=== PATIENT | female | born 1965 ===

== ENCOUNTER 2017-04-19 08:05 | Emergency (ER) | payer MEDICARE ==
[2017-04-19 08:06] VITALS: BMI 28.0
--- NOTE | 2017-04-19 08:31 | C.PDOC ---
History Of Present Illness 51 y/o female presents to the ED with complains of suprapubic tube displacement which onset this morning. Pt states tube replaced [address] Ruchi Chua. Pt noticed leaking from tube site vs cracked tube, then tube came out. Tube reinserted COLLECTION TEAM LEAD by family. Pt now complains of suprapubic fullness, no bag drainage since reinsertion. No fever, chills. SUPRAPUBIC TUBE DISPLACEMENT ONSET THIS MORNING. PS TUBE REPLACED [address] Ruchi CASANOVA. NOTICED LEAKING FROM TUBE SITE VS CRACKED TUBE, THEN TUBE CAME OUT. REINSERTED COLLECTION TEAM LEAD BY FAMILY. CO SUPRAPUBIC FULLNESS. NO BAG DRAINAGE SINCE REINSERTION EXAM NAD NONTOXIC PT HOLDING SUPRAPUBIC TUBE, PLACED IN OS. SKIN NO INFXNKRIS SWELL. Time Seen by Provider: 04/19/17 08:14 Chief Complaint (Nursing): Female Genitourinary History Per: Patient History/Exam Limitations: no limitations Onset/Duration Of Symptoms: Hrs Current Symptoms Are (Timing): Better Severity: Mild Quality Of Discomfort: Other (fullness) Associated Symptoms: denies: Fever, Chills Recent travel outside of the [place]: No Past Medical History Reviewed: Historical Data, Nursing Documentation, Vital Signs Vital Signs: Last Vital Signs Temp 98.6 F 04/19/17 12:34 Pulse 86 04/19/17 12:34 Resp 18 04/19/17 12:34 BP 112/80 04/19/17 12:34 Pulse Ox 97 04/19/17 12:34 - Medical History PMH: Asthma (ALLERGIC ASTHMA), Colonic Polyps (12/22/16), Gastritis (FROM MEDS), Multiple Sclerosis, Peripheral Edema, Seizures (DURING SLEEP) Surgical History: Endoscopy - [facility] Procedures DRAINAGE OF BLADDER WITH DRAINAGE DEVICE, PERC APPROACH (01/08/17) Family History: States: Unknown Family Hx - Social History Hx Alcohol Use: No Hx Substance Use: No - Immunization History Hx Influenza Vaccination: Yes (2015) Hx Pneumococcal Vaccination: Yes (2015) Review Of Systems Except As Marked, All Systems Reviewed And Found Negative. Constitutional: Negative for: Fever, Chills Gastrointestinal: Positive for: Other (suprapubic fullness) Physical Exam - Physical Exam Appears: Non-toxic Skin: Warm, Dry, No Rash, Other (No signs of infection, no discharge or swelling ) Chest: Symmetrical Cardiovascular: Rhythm Regular, No Murmur Respiratory: Normal Breath Sounds, No Rales, No Rhonchi, No Wheezing Gastrointestinal/Abdominal: Other (Pt holding suprapubic tube, placed in OS) Extremity: Normal ROM Neurological/Psych: Oriented x3, Normal Speech ED Course And Treatment O2 Sat by Pulse Oximetry: 98 (room air) Pulse Ox Interpretation: Normal Progress - Re-Evaluation Re-evaluation Note: 04/19/17 08:00 D/W DR Ruchi CASANOVA, MINISTERIO KEITH PT IN ER 04/19/17 08:39 PT REQUESTING STRAIGHT CATH DUE TO BLADDER FULLNESS, DISCOMFORT. 04/19/17 08:46 S/P STRAIGHT CATH 150 CC 04/19/17 12:00 sp catheter change by dr ruchi casanova in er. pt cleared for home dc. - Data Reviewed Data Reviewed: Old records - Continuity of Care Discussed patient case with:: Patient, Family-HIPPA compliant Discussed pt. case with real estate consultant/specialty: Urology Medical Decision Making Medical Decision Making: Plan: * Dialudid * urinalysis Disposition Counseled Patient/Family Regarding: Diagnosis, Need For Followup - Disposition Disposition: HOME/ ROUTINE Disposition Time: 12:30 Condition: IMPROVED Instructions: How to Care for Your Suprapubic Catheter (ED) - Clinical Impression Clinical Impression: Suprapubic catheter dysfunction - Scribe Statement The provider has reviewed the documentation as recorded by the Aaron Jones Provider Attestation: All medical record entries made by the Camronibe were at my direction and personally dictated by me. I have reviewed the chart and agree that the record accurately reflects my personal performance of the history, physical exam, medical decision making, and the department course for this patient. I have also personally directed, reviewed, and agree with the discharge instructions and disposition.
[2017-04-19 09:06] LABS: RBC URINE 22 /hpf (0-3); URINE BACTERIA RARE (<OCC); URINE BILIRUBIN NEGATIVE (NEGATIVE); URINE BLOOD 3+ (NEGATIVE); URINE COLOR Straw (YELLOW); URINE GLUCOSE (UA) NORMAL (Normal); URINE KETONE NEGATIVE (NEGATIVE); URINE LEUKOCYTE ESTERASE 3+ Leu/uL (Negative); URINE PROTEIN NEGATIVE (NEGATIVE); URINE UROBILINOGEN NORMAL mg/dL (0.2-1.0); WBC URINE 26 /hpf (0-5)
[2017-04-19 12:37] VITALS: BP 112/80; PULSE 86; RESP 18; TEMP 98.6
[2017-04-20 09:15] VITALS: O2SAT 98
--- NOTE | 2017-05-10 11:44 | CON ---
DATE: 04/19/2017 REASON FOR CONSULTATION: Failed [place] catheter. The patient is a very pleasant lady with apparent multiple medical issues. She may even have colon c ancer. She is seen by different gastroenterologists. I do not have any pathologic documentation. She has urinary retention that I do not have documentati on for. We discussed the options and right now she lives with a suprapubic catheter. I should mention that she reports a LATEX ALLERGY, but when I first met her, she had seemingly regula r catheter. I since then have put in some silicone catheters. In the interim in between, sometimes, she has some regular catheters inserted with no difficulties, b ut she reports a LATEX ALLERGY. Either way, she recalled me this morning and I am not in the office, but I met her here in the [facility] Room, where the catheter was not working properly. See below. Now, we have changed and put a new one in and she will be discharged home. PAST MEDICAL AND SURGICAL HISTORY: As mentioned above, multiple issues and mostly as recorded by the ER doctors. I am in agreement. MEDICATIONS: See chart. SOCIAL HISTORY: She is . In fact, her and the patient both thanked me. Instead of nicole schulte where she was living with recurrent infections and living with the catheter and living with all different kinds of problems and also that was affecting their intimacy time, so since she has had a suprapubic, she is back to her what she calls normal and feels much better and happier. PHYSICAL EXAMINATION GENERAL: Well-nourished female in no apparent distress. VITAL SIGNS: Within normal limits, included in the chart. LUNGS: Clear. ABDOMEN: Overall soft, nontender. No flank mass appreciated. Cystostomy tube looks to be in the proper location, but does not look to be draining well. What is of note is really and I do not think I have seen this before, there is leaking from the side where the balloon is, meaning the valve is defective. I should mention that the patient called me this morning and I met her here in the ER as quickly as allyssa garsia. Upon her presentation to the ER, the suprapubic catheter had fallen out. The ER doctor was not comfortable with the reinsertion process, but we were. See the procedure liste d below as a separately dictated note. We were able to get a catheter back in. DIAGNOSES: Urinary retention, voiding dysfunction and a dislodged suprapubic catheter. PLAN: As follows: See the separately dictated procedure note and the separate report, basically an operative report at the bedside. I was able to get a new catheter and irrigated it nicely. We only get a 12 or 14-Palestinian. The patient was already getting larger sizes, but now we are just happy to ge t one back in without having to do another procedure. So basically, this is a catheter that got defective. It could have been defective all along. It see ms like it started leaking at the valve and may be a pin or something went into it because you can ba rely see a hole. She called me this morning. She was having catheter difficulty. By the time she g ot to the ER, it was out. It was not in place at all and the ER cannot get one back in, but when I t ook the catheter and looked at it, I tried to fill up the balloon and then water leak through the fam e. So either some kind of defect to the catheter that was not noticed before now or perhaps the patient had a pin stick into it. I asked the patient later. She said maybe she leaned on something, maybe t his and that. There were a lot of possibilities very pleasant and sort of agreeable to options, so I cannot really be sure. Either way, now she has the resting catheter back in: Plan is to discharge the patient home and then have her come to the office and change the catheter on a regular basis. I have also cautioned her against playing with the valve, etc. Donavon Thomas MD cc: [id number] TT: 05/10/2017 11:43:52 Confirmation # [id number] Dictation # [id number] tn
--- NOTE | 2017-05-10 12:05 | OP ---
PROCEDURE DATE: 04/19/2017 This is a bedside procedure. PREOPERATIVE DIAGNOSES: Catheter failure, catheter dislodgement, nonfunctioning catheter. POSTOPERATIVE DIAGNOSES: Catheter failure, catheter dislodgement, nonfunctioning catheter. PROCEDURE: Insertion of a new cystostomy tube, not just a simple exchange. There were no complications. INDICATIONS: See the history and physical and the ER notes and the consultation from me previously d ictated. A very pleasant lady who I know quite well who presented now. She called me this morning that the ca theter was not working well and so I sent her to the Emergency Room. Upon presentation to the Emerge ncy Room, the patient has a cystostomy tube that is not draining well. Upon presentation to the Emergency Room, the catheter was actually not in place. The Emergency Room doctor spoke to me directly, but was not able to get a catheter back in. I was not able to initially get catheter back in. I tried 15 and 14 Frenches and then I had the c art available. I was able to get a little thing and dilate it up and then able to get a little filif orm in. Then once I felt comfortable that was in properly, without dilating, I was not dilating blin dly, but once I felt that this had gone in, I then was able to get a 12-Omani and the urine came magdalena ring out. I should mention that the patient is on blood thinner as well and this concerned me. We were able to get a catheter in well and it is draining well. There was no blood loss. There were no complications. I just want to also mention that further inspection of the balloon that came out, there is leak at th e side of the catheter. When I inject fluid into the valve downstream from there, there is a leak. Unclear exactly the timing for this. It certainly could not be from the origins of insertion. Whether this is some kind of faulty catheter or whether the patient had stuck a pin in or some kind o f thing is not clear. Certainly when I asked the patient, it does not seem like she is very clear ex actly how and when it stopped working properly. Either way, that is the procedure that was done and there were no complications. Donavon L William MD cc: [id number] TT: 05/10/2017 12:05:07 tn
== END 2017-04-19 12:38 | disposition home or self-care (01) ==
LOC: C.ER 08:05
DX: T83.010A Breakdown (mechanical) of cystostomy catheter, initial encounter (principal); Y84.8 Other medical procedures as the cause of abnormal reaction of the patient, or of later complication, without mention of misadventure at the time of the procedure; R33.9 Retention of urine, unspecified

== ENCOUNTER 2019-04-01 10:09 | Emergency (ER) | payer MEDICARE ==
[2019-04-01 10:09] VITALS: BMI 28.0
[2019-04-01] MEDS ORDERED: Sodium Chloride 0.9% 1,000 ML IV ONE (11:51)
[2019-04-01 12:34] LABS: BASO % 0.6 % (0.0-2.0); EOS # 0.4 K/uL (0.0-0.7); EOS % 4.6 % (0.0-4.0); LYMPH # 1.9 K/uL (1.0-4.3); LYMPH % 24.9 % (20.0-40.0); MEAN CORPUSCULAR HEMOGLOBIN 30.1 pg (27.0-31.0); MEAN CORPUSCULAR HGB CONC 34.2 g/dL (33.0-37.0); MEAN PLATELET VOLUME 7.9 fL (7.2-11.7); MONO # 0.4 K/uL (0.0-0.8); MONO % 5.6 % (0.0-10.0); NEUT % 64.3 % (50.0-75.0); RBC 4.73 Mil/uL (3.80-5.20); RED CELL DISTRIBUTION WIDTH 13.8 % (11.5-14.5); WHITE BLOOD COUNT 7.8 K/uL (4.8-10.8)
[2019-04-01 12:37] LABS: HEMOGLOBIN 14.3 g/dL (11.0-16.0); MEAN CELL VOLUME 88.3 fL (81.0-99.0)
[2019-04-01 12:50] LABS: ALB/GLOB RATIO 1.2 (1.0-2.1); ALBUMIN 4.7 g/dL (3.5-5.0); ALT/SGPT 35 U/L (9-52); AST/SGOT 31 U/L (14-36); BLOOD UREA NITROGEN 13 mg/dL (7-17); CALCIUM 10.2 mg/dl (8.6-10.4); GFR NON-AFRICAN AMERICAN > 60
[2019-04-01 12:56] LABS: SQUAMOUS EPITHIAL 5 /hpf (0-5); URINE BACTERIA OCC (<OCC); URINE BILIRUBIN NEGATIVE (NEGATIVE); URINE BLOOD NEGATIVE (NEGATIVE); URINE CLARITY Hazy (Clear); URINE COLOR Yellow (YELLOW); URINE GLUCOSE (UA) NORMAL (Normal); URINE LEUKOCYTE ESTERASE NEG Leu/uL (Negative); URINE PROTEIN NEGATIVE (NEGATIVE); URINE UROBILINOGEN NORMAL mg/dL (0.2-1.0)
[2019-04-01 14:10] VITALS: RESP 20; O2SAT 97
--- NOTE | 2019-04-01 14:17 | C.PDOC ---
History Of Present Illness 53-year-old female, whose PMHx includes multiple sclerosis and kidney stones, presents to the ED for evaluation of right leg pain which began a couple weeks ago. Patient states she was taking Flomax and just recently finished the ant ibiotics. Patient presents to the ED for evaluation because she still has pain. She also reports an episode of vomiting. She denies fever, chills. Time Seen by Provider: 04/01/19 11:46 Chief Complaint (Nursing): Back Pain History Per: Patient History/Exam Limitations: no limitations Onset/Duration Of Symptoms: Other (two weeks ) Current Symptoms Are (Timing): Still Present Quality Of Discomfort: "Pain" Additional History Per: Patient Past Medical History Reviewed: Historical Data, Nursing Documentation, Vital Signs Vital Signs: Last Vital Signs Temp 98.1 F 04/01/19 14:09 Pulse 112 H 04/01/19 14:09 Resp 20 04/01/19 14:09 BP 110/73 04/01/19 14:09 Pulse Ox 97 04/01/19 14:09 Primary Care Provider: Shazia Guan - Medical History PMH: Asthma (ALLERGIC ASTHMA), Colonic Polyps (12/22/16), Gastritis (FROM MEDS), Multiple Sclerosis, Peripheral Edema, Seizures (DURING SLEEP) Denies: Chronic Kidney Disease Surgical History: Endoscopy - [facility] Procedures DRAINAGE OF BLADDER WITH DRAINAGE DEVICE, PERC APPROACH (01/08/17) Family History: States: Unknown Family Hx - Social History Hx Alcohol Use: No Hx Substance Use: No - Immunization History Hx Influenza Vaccination: Yes (2017) Hx Pneumococcal Vaccination: No (2015) Review Of Systems Constitutional: Negative for: Fever, Chills Gastrointestinal: Positive for: Vomiting Musculoskeletal: Positive for: Leg Pain (right ) Physical Exam - Physical Exam Appears: Non-toxic, No Acute Distress Skin: Normal Color, Warm, Dry Head: Atraumatic, Normacephalic Eye(s): bilateral: Other (visually impaired ) Oral Mucosa: Moist Neck: Supple Chest: Symmetrical, No Deformity, No Tenderness Cardiovascular: Rhythm Regular, No Murmur Respiratory: Normal Breath Sounds, No Rales, No Rhonchi, No Wheezing Gastrointestinal/Abdominal: Soft, No Tenderness, No Guarding, No Rebound Back: CVA Tenderness (right-sided), No Vertebral Tenderness, No Paraspinal T enderness Extremity: Normal ROM, Capillary Refill (less than 2 seconds ) Neurological/Psych: Oriented x3, Normal Speech, Normal Cognition ED Course And Treatment - Laboratory Results Result Diagrams: 04/01/19 12:31 04/01/19 12:31 Lab Results: Total Bilirubin 0.3 mg/dL (0.2-1.3) 04/01/19 12:31 AST 31 U/L (14-36) 04/01/19 12:31 ALT 35 U/L (9-52) 04/01/19 12:31 Alkaline Phosphatase 107 U/L (38-126) 04/01/19 12:31 Total Protein 8.6 g/dL (6.3-8.3) H 04/01/19 12:31 Albumin 4.7 g/dL (3.5-5.0) 04/01/19 12:31 Globulin 3.9 gm/dL (2.2-3.9) 04/01/19 12:31 Albumin/Globulin Ratio 1.2 (1.0-2.1) 04/01/19 12:31 Urine Color Yellow (YELLOW) 04/01/19 12:45 Urine Clarity Hazy (Clear) 04/01/19 12:45 Urine pH 5.0 (5.0-8.0) 04/01/19 12:45 Ur Specific [place] 1.008 (1.003-1.030) 04/01/19 12:45 Urine Protein Negative mg/dL (NEGATIVE) 04/01/19 12:45 Urine Glucose (UA) Normal mg/dL (Normal) 04/01/19 12:45 Urine Ketones Negative mg/dL (NEGATIVE) 04/01/19 12:45 Urine Blood Negative (NEGATIVE) 04/01/19 12:45 Urine Nitrate Negative (NEGATIVE) 04/01/19 12:45 Urine Bilirubin Negative (NEGATIVE) 04/01/19 12:45 Urine Urobilinogen Normal mg/dL (0.2-1.0) 04/01/19 12:45 Ur Leukocyte Esterase Neg Jayne/uL (Negative) 04/01/19 12:45 Urine WBC (Auto) 1 /hpf (0-5) 04/01/19 12:45 Urine RBC (Auto) < 1 /hpf (0-3) 04/01/19 12:45 Ur Squamous Epith Cells 5 /hpf (0-5) 04/01/19 12:45 Urine Bacteria Occ (<OCC) H 04/01/19 12:45 O2 Sat by Pulse Oximetry: 97 (on RA) Pulse Ox Interpretation: Normal - CT Scan/US CT A/P Other Rad Studies (CT/US): Read By Radiologist, Radiology Report Reviewed CT/US Interpretation: Date of service: 04/01/2019. PROCEDURE: CT Abdomen and Pelvis without intravenous contrast. HISTORY: right flank pain, hx kidney stones. COMPARISON: None. TECHNIQUE: Without contrast.. Contrast dose: 0. Radiation dose: Total exam DLP = 642.59 mGy-cm. This CT exam was performed using one or more of the following dose reduction techniques: Automated exposure control, adjustment of the mA and/or kV according to patient size, and/or use of iterative reconstruction technique. FINDINGS: LOWER THORAX: Unremarkable. LIVER: Unremarkable. No gross lesion or ductal dilatation. GALLBLADDER AND BILE DUCTS: Unremarkable. PANCREAS: Unremarkable. No gross lesion or ductal dilatation. SPLEEN: Unremarkable. ADRENALS: Unremarkable. No mass. KIDNEYS AND URETERS: Unremarkable. No hydronephrosis. No solid mass. VASCULATURE: Unremarkable. No aortic aneurysm. No aortic atherosclerotic calcification or mural plaque present. BOWEL: Unremarkable. No obstruction. No gross mural thickening. APPENDIX: Unremarkable. Normal appendix. PERITONEUM: Unremarkable. No free fluid. No free air. LYMPH NODES: Unremarkable. No enlarged lymph nodes. BLADDER: Unremarkable. REPRODUCTIVE: Normal uterus. BONES: No acute fracture. OTHER FINDINGS: There are normal symmetric areas of focal skin thickening and abnormal density in the subcutaneous soft tissues, at the level of the iliac crests. These may represent decubitus ulcers. There is no denisse cutaneous ulceration appreciated. There is gas seen within the subcutaneous soft tissues on the left side. There are some punctate calcifications also seen within the abnormal soft tissue density on the left side. Significance unclear. Correlate with direct visual inspection. IMPRESSION: No evidence of urinary calculus or urinary tract obstruction. Unremarkable examination. Focal cutaneous thickening with abnormal subcutaneous soft tissue density, symmetrically, at the level of the iliac crests. There is a small amount of subcutaneous gas as well on the left side. Questionable decubitus ulcerations. Correlate with clinical exam. Medical Decision Making Medical Decision Making: Progress: Bloodwork, urinalysis, CT A/P ordered and reviewed. IV Fluids and Toradol IVP given. On reassessment, patient is resting comfortably, showing no signs of distress and reports an improvement in her symptoms. Patient is advised to follow up with her PMD within 1-2 days for further evaluation. Advised to return to the ED immediately if symptoms persist or worsen. pt reports she gets daily injections to bilateral waist area for her MS which accounts for subcutaneous gas on xray. Disposition Discussed With .: Shazia Guan Doctor Will See Patient In The: Office - Disposition Referrals: Shazia Guan MD [Staff Provider] - Disposition: HOME/ ROUTINE Disposition Time: 15:38 Condition: IMPROVED Additional Instructions: Follow up with Dr Guan in 1-2 days. Drink increased fluids. Return to ER for any worse symptoms, Instructions: Flank Pain (DC) Forms: [facility] ([place]ese), General Discharge Instructions - Clinical Impression Clinical Impression: Right flank pain - PA / PHARMACEUTICAL COMPOUNDING SUPERVISOR / Resident Statement MD/DO has reviewed & agrees with the documentation as recorded. - Scribe Statement The provider has reviewed the documentation as recorded by the Scribe (Lilo Lechuga) All medical record entries made by the Scribe were at my direction and personally dictated by me. I have reviewed the chart and agree that the record accurately reflects my personal performance of the history, physical exam, medical decision making, and the department course for this patient. I have also personally directed, reviewed, and agree with the discharge instructions and disposition.
--- NOTE | 2019-04-01 15:09 | CT ---
Date of service: 04/01/2019 PROCEDURE: CT Abdomen and Pelvis without intravenous contrast HISTORY: right flank pain, hx kidney stones COMPARISON: None. TECHNIQUE: Without contrast.. Contrast dose: 0 Radiation dose: Total exam DLP = 642.59 mGy-cm. This CT exam was performed using one or more of the following dose reduction techniques: Automated exposure control, adjustment of the mA and/or kV according to patient size, and/or use of iterative reconstruction technique. FINDINGS: LOWER THORAX: Unremarkable. LIVER: Unremarkable. No gross lesion or ductal dilatation. GALLBLADDER AND BILE DUCTS: Unremarkable. PANCREAS: Unremarkable. No gross lesion or ductal dilatation. SPLEEN: Unremarkable. ADRENALS: Unremarkable. No mass. KIDNEYS AND URETERS: Unremarkable. No hydronephrosis. No solid mass. VASCULATURE: Unremarkable. No aortic aneurysm. No aortic atherosclerotic calcification or mural plaque present. BOWEL: Unremarkable. No obstruction. No gross mural thickening. APPENDIX: Unremarkable. Normal appendix. PERITONEUM: Unremarkable. No free fluid. No free air. LYMPH NODES: Unremarkable. No enlarged lymph nodes. BLADDER: Unremarkable. REPRODUCTIVE: Normal uterus BONES: No acute fracture. OTHER FINDINGS: There are normal symmetric areas of focal skin thickening and abnormal density in the subcutaneous soft tissues, at the level of the iliac crests. These may represent decubitus ulcers. There is no denisse cutaneous ulceration appreciated. There is gas seen within the subcutaneous soft tissues on the left side. There are some punctate calcifications also seen within the abnormal soft tissue density on the left side. Significance unclear. Correlate with direct visual inspection. IMPRESSION: No evidence of urinary calculus or urinary tract obstruction. Unremarkable examination. Focal cutaneous thickening with abnormal subcutaneous soft tissue density, symmetrically, at the level of the iliac crests. There is a small amount of subcutaneous gas as well on the left side. Questionable decubitus ulcerations. Correlate with clinical exam.
[2019-04-01 16:01] VITALS: BP 104/71; PULSE 78; TEMP 98.4
== END 2019-04-01 16:01 | disposition home or self-care (01) ==
LOC: C.ER 10:09
DX: R10.9 Unspecified abdominal pain (principal)
CPT/HCPCS: 74176; 80053; 81001; 85025; 87086; 96361; 96374; 99284; J1885; J7030